=== PATIENT | male | born 1995 | race African-American/Black ===

== ENCOUNTER → 2017-02-17 21:11 | Emergency (ER) | payer OTHER ==
[~2017-02-17 21:11] MED LIST: Tetan/Diph/Pertus SYR(Tdap)* 0.5 ML SYR(BOOSTRIX) use SYR IM ONE
[2017-02-17 21:16] VITALS: BP 122/70
--- NOTE | 2017-02-17 21:49 | ED ---
Laceration/Wound HPI - HPI Summary HPI Summary: 21M presents with laceration to right elbow today. He states he was climbing a wall when he slipped and landed on his right elbow. He is right handed. He has pain with ROM of his elbow. He states he had his last tetanus probably when he was 14. He has full ROM of his elbow with pain. He has some pain radiating down to his pinky. He also has abrasions on his foot as he was bare foot. He denies any foreign body in wound. - History of Current Complaint Stated Complaint: FALL/ARM LAC,FOOT ABRASIONS Time Seen by Provider: 02/17/17 21:37 Pain Intensity: 9 - Allergy/Home Medications Allergies/Adverse Reactions: Allergies Allergy/AdvReac Type Severity Reaction Status Date / Time Ibuprofen Allergy Swelling Verified 02/17/17 21:17 PMH/Surg Hx/FS Hx/Imm Hx Endocrine/Hematology History: Denies: Hx Anticoagulant Therapy Respiratory History: Reports: Hx Asthma - as a child Infectious Disease History: No Infectious Disease History: Denies: Traveled Outside the [place] in Last 30 Days - Family History Known Family History: Positive: Diabetes - Social History Alcohol Use: None Substance Use Type: Reports: Marijuana Substance Use Comment - Amount & Last Used: A FEW TOKES EARLIER TODAY Smoking Status (MU): Current Some Day Smoker Review of Systems Negative: Fever Negative: Chest Pain Negative: Shortness Of Breath Positive: Myalgia - elbow pain Positive: Other - laceration right elbow All Other Systems Reviewed And Are Negative: Yes Physical Exam Triage Information Reviewed: Yes Vital Signs On Initial Exam: Initial Vitals Temp Pulse Resp BP Pulse Ox 99 F 85 18 122/70 99 02/17/17 21:14 02/17/17 21:14 02/17/17 21:14 02/17/17 21:14 02/17/17 21:14 Vital Signs Reviewed: Yes Appearance: Positive: Well-Appearing Skin: Positive: Warm, Dry, Other - 2cm by 1/2 cm laceration over right elbow, small abrasions near right elbow, abrasion to right foot Procedures - Laceration/Wound Repair 1 Location: Other - right elbow Description: Linear Anesthesia: Local, 1.0% Length, Depth and Shape: 2cm by 1/2 cm Betadine Prep?: Yes Irrigated w/ Saline (ccs): 150 Laceration/Wound Explored: clean Closure: Single Layer Suture Type: Prolene - 4-0 Number of Sutures: 2 - vertical mattress Diagnostics - Vital Signs Vital Signs Temp Pulse Resp BP Pulse Ox 02/17/17 21:16 99 F 88 18 122/70 98 02/17/17 21:14 99 F 85 18 122/70 99 - Laboratory Lab Statement: Any lab studies that have been ordered have been reviewed, and results considered in the medical decision making process. - Radiology elbow Xray Interpretation: No Acute Changes Radiology Interpretation Completed By: Radiologist Laceration Repair Course/Dx - Course Course Of Treatment: 21M presents with right elbow laceration after falling on some rocks. has full ROM of elbow. tetanus was 7 years ago. due to location and width of laceration placed 2 vertical mattress stitches, placed steri strips over abrasion due to location wanted to make sure didn't open up as are on elbow joint, xray elbow normal. left before tetanus given. patient understands and agrees with plan - Differential Dx Differental Diagnoses: Abrasion, Avulsion, Fracture, Laceration - Clinical Impression Provider Diagnoses: Elbow laceration Discharge - Discharge Plan Condition: Good Disposition: HOME Patient Education Materials: Care For Your Stitches (ED) Referrals: No Primary Care Phys,NOPCP [Primary Care Provider] - Additional Instructions: Keep wrapped in SAYDA for 5 days Take Tylenol or ibuprofen for pain Keep area clean and dry Return to ED or primary in 10-14 days to have sutures removed Return to ED if develop signs of infection such as fever, spreading redness, or pus.
--- NOTE | 2017-02-17 22:46 | RAD ---
Indication: Fall on elbow with elbow injury. 4 views of the elbow demonstrates no fracture. No joint effusion is noted. There is suggestion of soft tissue laceration. IMPRESSION: NO FRACTURE IS NOTED. SUBCUTANEOUS LACERATION.
== END | disposition home or self-care (01) ==
LOC: ED 21:11
DX: S51.011A Laceration without foreign body of right elbow, initial encounter (principal); W01.0XXA Fall on same level from slipping, tripping and stumbling without subsequent striking against object, initial encounter; Y93.9 Activity, unspecified; Y92.9 Unspecified place or not applicable; Y99.9 Unspecified external cause status; Z72.0 Tobacco use
CPT/HCPCS: 12001; 90471; 90715; 99281

== ENCOUNTER 2017-05-11 01:39 | Emergency (ER) | payer SELFPAY ==
[2017-05-11] MEDS ORDERED: NS 0.9% 1000 ML* 1,000 ML IV ONE (02:15)
[2017-05-11 02:33] LABS: Hematocrit 47 % (42-52); Hemoglobin 15.8 g/dl (14.0-18.0); Mean Corpuscular HGB Conc 34 g/dl (31-36); Mean Corpuscular Hemoglobin 32 pg (27-31); Mean Corpuscular Volume 96 fL (80-94); Mean Platelet Volume 8 um3 (7.4-10.4); Red Blood Count 4.89 10^6/ul (4.0-5.4); Red Cell Distribution Width 13 % (10.5-15); White Blood Count 7.9 10^3/ul (3.5-10.8)
[2017-05-11 02:38] LABS: Urine Bilirubin Negative (Negative); Urine Glucose Negative (Negative); Urine Nitrite Negative (Negative)
[2017-05-11 02:47] LABS: Albumin 4.2 g/dL (3.2-5.2); Calcium 9.4 mg/dL (8.6-10.3); EGFR African American 80.4 (>60); EGFR Non-African American 62.5 (>60); Globulin 2.8 g/dL (2-4); Potassium 3.7 mmol/L (3.5-5.0); Total Bilirubin 0.5 mg/dL (0.2-1.0)
[2017-05-11] MEDS ORDERED: Iohexol 300* (CONTRAST) 10 ML SDV IV ONE (02:57)
[2017-05-11] MEDS ORDERED: HYDROcodone/ACETAMIN 5-325 MG* 1 TAB PO ONE (03:49)
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
[2017-05-11 04:13] VITALS: BP 114/68
--- NOTE | 2017-05-11 07:54 | RAD ---
HISTORY: Pelvic pain, trauma COMPARISONS: None TECHNIQUE: Multiple contiguous axial CT scans were obtained of the chest, abdomen, and pelvis after the administration of intravenous contrast. Coronal and sagittal multiplanar reformations are submitted for review.. Oral contrast was not administered. Delayed images were obtained through the abdomen and pelvis. FINDINGS: CHEST NECK AND THYROID: The lower neck and thyroid are unremarkable. CHEST WALL: There is no lower cervical, axillary, or supraclavicular lymphadenopathy by size criteria. HEART AND PERICARDIUM: The heart is unremarkable. AORTA AND PULMONARY VASCULATURE: The aorta and pulmonary vasculature are normal. MEDIASTINUM: There is no mediastinal lymphadenopathy by size criteria. FLORENTIN: There is no hilar lymphadenopathy by size criteria. AIRWAY AND ESOPHAGUS: The airway is unremarkable, without endobronchial filling defect. The esophagus is grossly normal. LUNG PARENCHYMA: The lungs are clear. PLEURA: No pleural abnormalities are noted. BONES AND SOFT TISSUES: No bone or soft tissue abnormalities are noted. ABDOMEN/PELVIS: LIVER: The liver is normal in shape, size, contour, and attenuation. BILE DUCTS: There is no intrahepatic or extrahepatic biliary dilatation. GALLBLADDER: The gallbladder is not distended, but is grossly normal. PANCREAS: The pancreas is normal, without mass or ductal dilatation. SPLEEN: Normal in size and appearance. UPPER GI TRACT: Evaluation of the gastrointestinal tract is limited by incomplete gastric distention. The upper GI tract is unremarkable. SMALL BOWEL \T\ MESENTERY: The small bowel is normal in contour, course, and caliber. There is no obstruction or dilatation. COLON: The colon is normal in contour, course, caliber. There is no pericolonic inflammatory change. ADRENALS: Normal bilaterally. KIDNEYS: The kidneys are normal in shape, size, contour, and axis. There is no hydronephrosis or nephrolithiasis. BLADDER: The bladder is smooth in contour. PELVIC ORGANS: The prostate gland is normal. The seminal vesicles are symmetric. AORTA: The aorta is normal. IVC: Unremarkable LYMPH NODES: There is no lymphadenopathy by size criteria. ABDOMINAL WALL: There is no evidence for abdominal wall hernia. BONES: The bony skeleton is grossly unremarkable. OTHER: There is no free intraperitoneal fluid or free intraperitoneal gas. There is no active arterial extravasation. IMPRESSION: NO ACUTE CT PATHOLOGY OF THE CHEST, ABDOMEN, OR PELVIS
== END 2017-05-11 04:16 | disposition home or self-care (01) ==
LOC: ED 01:39
DX: S30.21XA Contusion of penis, initial encounter (principal); M25.551 Pain in right hip; V49.9XXA Car occupant (driver) (passenger) injured in unspecified traffic accident, initial encounter; Y93.9 Activity, unspecified; Y92.9 Unspecified place or not applicable
CPT/HCPCS: 36415; 71260; 74177; 80053; 81003; 83605; 85025; 99283; Q9967

== ENCOUNTER 2018-04-10 12:55 | Emergency (ER) | payer SELFPAY ==
--- NOTE | 2018-04-10 13:38 | RAD ---
INDICATION: Right middle finger injury. TECHNIQUE: 3 views of the right middle finger were obtained. FINDINGS: There is soft tissue swelling present. There is an oblique slightly comminuted fracture of the distal diaphysis and metaphysis of the third metacarpal. There is mild medial displacement of the distal fragment relative the proximal fragment of approximately 1 cortical diameter. IMPRESSION: SLIGHTLY DISPLACED FRACTURE OF THE THIRD METACARPAL.
[2018-04-10 14:40] VITALS: BP 129/58
--- NOTE | 2018-04-10 15:11 | ED ---
Upper Extremity Pain - HPI Summary HPI Summary: Pt. is a 22 y.o male who presents to the ER for a right hand injury that occurred today. Pt. states he was at work using a ambler bar to remove a rock when he felt a popping in his right 3rd finger and hand. Symptoms are mild in severity. Moving and touching hand makes symptoms worse. Rest makes symptoms better. - History of Current Complaint Chief Complaint: EDExtremityUpper Stated Complaint: RT FINGER INJURY Time Seen by Provider: 04/10/18 13:03 Hx Obtained From: Patient - Allergies/Home Medications Allergies/Adverse Reactions: Allergies Allergy/AdvReac Type Severity Reaction Status Date / Time ibuprofen Allergy Swelling Verified 04/10/18 12:59 Of Face,Lips,& Throat PMH/Surg Hx/FS Hx/Imm Hx Previously Healthy: Yes Endocrine/Hematology History: Denies: Hx Anticoagulant Therapy, Hx Diabetes Cardiovascular History: Denies: Hx Hypertension Respiratory History: Reports: Hx Asthma - as a child History: Denies: Hx Renal Disease Infectious Disease History: No Infectious Disease History: Denies: Traveled Outside the [place] in Last 30 Days - Family History Known Family History: Positive: Diabetes - Social History Occupation: Employed Full-time Lives: With Family Alcohol Use: None Substance Use Type: Reports: Marijuana Substance Use Comment - Amount & Last Used: A FEW TOKES EARLIER TODAY Smoking Status (MU): Current Some Day Smoker Review of Systems Positive: Other - Right hand injury Negative: Weakness, Paresthesia, Numbness All Other Systems Reviewed And Are Negative: Yes Physical Exam Triage Information Reviewed: Yes Vital Signs On Initial Exam: Initial Vitals Temp Pulse Resp BP Pulse Ox 98.3 F 64 17 134/55 99 04/10/18 12:56 04/10/18 12:56 04/10/18 12:56 04/10/18 12:56 04/10/18 12:56 Vital Signs Reviewed: Yes Appearance: Positive: Well-Appearing - Pt. sitting on bed in NAD. Skin: Positive: Warm, Dry Head/Face: Positive: Normal Head/Face Inspection Eyes: Positive: Normal Neck: Positive: Supple Musculoskeletal: Positive: Other - Mild edema and pain on palpation over the 3rd metatarsal and 3rd PIP joint. Difficulty flexing and extending digit secondary to pain. No breaks in the skin. Neurological: Positive: Normal, CN Intact II-III Psychiatric: Positive: Affect/Mood Appropriate Procedures - Splinting Right Upper Extremity Hand-Made Type: orthoglass Splint: volar Pre-Proc Neuro Vasc Exam: normal Post-Proc Neuro Vasc Exam: normal Diagnostics - Vital Signs Vital Signs Temp Pulse Resp BP Pulse Ox 04/10/18 14:39 98.4 F 63 18 129/58 99 04/10/18 12:56 98.3 F 64 17 134/55 99 - Laboratory Lab Statement: Any lab studies that have been ordered have been reviewed, and results considered in the medical decision making process. Course/Dx - Course Course Of Treatment: Pt. presenting to the ER for a right hand injury. Xray shows a slightly displaced fracture of the 3rd metacarpal, reading per radiology. Hand was splinted. Pt. to call orthopedics tomorrow morning for an apt. To ice and elevate. A few days of lortab rx for pain. DIABETES PHYSICIAN reviewed and no reg flags noted. Pt. understands and agrees with plan. - Diagnoses Differential Diagnosis/HQI/PQRI: Positive: Contusion, Fracture (Closed), Hematoma, Strain, Sprain Provider Diagnoses: Fracture, metacarpal shaft Discharge - Sign-Out/Discharge Documenting (check all that apply): Discharge/Admit/Transfer - Discharge Plan Condition: Good Disposition: HOME Prescriptions: Hydrocodone/Acetaminophen [Hydrocodone-Acetamin 5-325 mg] 1 each PO Q6H #12 tablet MDD 4tablets Patient Education Materials: Hand Fracture (ED) Referrals: Syd Martínez MD [Medical Doctor] - No Primary Care Phys,NOPCP [Primary Care Provider] - Additional Instructions: Call Dr. Martínez's office tomorrow morning to schedule an appointment Keep splint in place Ice and elevate Pain medication as directed - Billing Disposition and Condition Condition: GOOD Disposition: Home
== END 2018-04-10 14:39 | disposition home or self-care (01) ==
LOC: ED 12:55
DX: S62.322A Displaced fracture of shaft of third metacarpal bone, right hand, initial encounter for closed fracture (principal); X58.XXXA Exposure to other specified factors, initial encounter; Y92.9 Unspecified place or not applicable; F17.200 Nicotine dependence, unspecified, uncomplicated; Z88.6 Allergy status to analgesic agent
CPT/HCPCS: 73140; 99282

== ENCOUNTER 2018-05-19 15:50 | Emergency (ER) | payer SELFPAY ==
[2018-05-19 16:06] VITALS: BP 113/66
--- NOTE | 2018-05-19 16:21 | UC ---
[facility] Dental HPI - HPI Summary HPI Summary: right upper dental pain worsening over the past week--has not made a dental appointment - History of Current Complaint Chief Complaint: UCDentalProblem Stated Complaint: DENTAL COMPLAINT Time Seen by Provider: 05/19/18 16:15 Hx Obtained From: Patient Onset/Duration: Gradual Onset, Lasting Weeks - 1, Still Present Pain Intensity: 5 Pain Scale Used: 0-10 Numeric Aggravating Factor(s): Chewing Alleviating Factor(s): Nothing Related History: Previous Dental Care on Same Tooth - Allergies/Home Medications Allergies/Adverse Reactions: Allergies Allergy/AdvReac Type Severity Reaction Status Date / Time ibuprofen Allergy Swelling Verified 05/19/18 16:06 Of Face,Lips,& Throat PMH/Surg Hx/FS Hx/Imm Hx Previously Healthy: Yes Other History Of: Negative For: Anticoagulant Therapy - Surgical History Surgical History: None - Family History Known Family History: Positive: Diabetes - Social History Occupation: Unemployed Lives: With Family Alcohol Use: None Substance Use Type: Marijuana Substance Use Comment - Amount & Last Used: A FEW TOKES EARLIER TODAY Smoking Status (MU): Light Every Day Tobacco Smoker Review of Systems Constitutional: Negative Skin: Negative Eyes: Negative ENT: Dental Pain Respiratory: Negative Cardiovascular: Negative Gastrointestinal: Negative Genitourinary: Negative Motor: Negative Neurovascular: Negative Musculoskeletal: Negative Neurological: Negative Psychological: Negative Is Patient Immunocompromised?: No All Other Systems Reviewed And Are Negative: Yes Physical Exam Triage Information Reviewed: Yes Appearance: Well-Appearing, No Pain Distress, Well-Nourished Vital Signs: Initial Vital Signs Temp 98.4 F 05/19/18 16:01 Pulse 63 05/19/18 16:01 Resp 16 05/19/18 16:01 BP 113/66 05/19/18 16:01 Pulse Ox 100 05/19/18 16:01 Vital Signs Reviewed: Yes Eye Exam: Normal Eyes: Positive: Conjunctiva Clear ENT Exam: Normal ENT: Positive: Normal ENT inspection, Hearing grossly normal. Negative: Trismus , Muffled voice, Hoarse voice Dental Exam: Other Dental: Positive: Percussion Tenderness @ - #3 Neck exam: Normal Neck: Positive: Supple Respiratory Exam: Normal Respiratory: Positive: Chest non-tender, No respiratory distress, No accessory muscle use Cardiovascular Exam: Normal Cardiovascular: Positive: RRR, Pulses Normal, Brisk Capillary Refill Musculoskeletal Exam: Normal Neurological Exam: Normal Psychological Exam: Normal Skin Exam: Normal Dental Complaint Course/Dx - Course Course Of Treatment: amoxicillin, hydrocodone, follow with dentist in the next 7 days - Differential Dx/Diagnosis Provider Diagnoses: dental pain tooth #3 Discharge - Sign-Out/Discharge Documenting (check all that apply): Patient Departure - Discharge Plan Condition: Stable Disposition: HOME Prescriptions: Amoxicillin PO (*) [Amoxicillin 500 MG CAP*] 500 mg PO TID #30 cap Hydrocodone/Acetaminophen [Hydrocodone-Acetamin 5-325 mg] 1 each PO Q6HR PRN # 10 tablet MDD 4 PRN Reason: Pain (Dental) Patient Education Materials: Dental Abscess (ED), Toothache (ED) Referrals: [facility] [Outside] - If Needed [facility] [place] [facility] [Outside] - If Needed Additional Instructions: Follow with dentist this week - Billing Disposition and Condition Condition: STABLE Disposition: Home
== END 2018-05-19 16:39 | disposition home or self-care (01) ==
LOC: UCEAST 15:50
DX: K08.89 Other specified disorders of teeth and supporting structures (principal); Z88.6 Allergy status to analgesic agent; F17.210 Nicotine dependence, cigarettes, uncomplicated
CPT/HCPCS: 99212; G0463

== ENCOUNTER 2019-07-26 23:52 | Emergency (ER) | payer OTHER ==
[2019-07-27] VITALS: BP 151/68
[2019-07-27] MEDS ORDERED: Amoxicillin/Clavulanate TAB* 500 MG PO ONE (00:44)
[2019-07-27] MEDS ORDERED: diPHENhydraMINE PO* 25 MG PO ONE (00:44)
--- NOTE | 2019-07-27 00:47 | ED ---
Upper Extremity Pain - HPI Summary HPI Summary: 23-year-old male presents with swelling to left middle finger since yesterday. States he got bit by a spider when he is moving wood. This area started to swell. He states it is very itchy. He is on the rash and feels warm. Has a history of MRSA. Has no medical conditions. Never had this reaction before. No chest pain or shortness breath. No fevers or chills. No sore throat. - History of Current Complaint Chief Complaint: EDGeneral Stated Complaint: SPIDER BITE L HAND SWOLLEN PER PT Time Seen by Provider: 07/27/19 00:36 - Allergies/Home Medications Allergies/Adverse Reactions: Allergies Allergy/AdvReac Type Severity Reaction Status Date / Time ibuprofen Allergy Swelling Verified 07/27/19 00:00 Of Face,Lips,& Throat PMH/Surg Hx/FS Hx/Imm Hx Endocrine/Hematology History: Denies: Hx Anticoagulant Therapy, Hx Diabetes Cardiovascular History: Denies: Hx Hypertension Respiratory History: Reports: Hx Asthma History: Denies: Hx Renal Disease Infectious Disease History: No Infectious Disease History: Denies: Traveled Outside the [place] in Last 30 Days - Family History Known Family History: Positive: Diabetes - Social History Alcohol Use: None Substance Use Type: Reports: Marijuana Substance Use Comment - Amount & Last Used: A FEW TOKES EARLIER TODAY Smoking Status (MU): Light Every Day Tobacco Smoker Review of Systems Negative: Fever Negative: Chest Pain Negative: Shortness Of Breath Positive: Rash, Other - swelling left finger middle All Other Systems Reviewed And Are Negative: Yes Physical Exam Triage Information Reviewed: Yes Vital Signs On Initial Exam: Initial Vitals Temp Pulse Resp BP Pulse Ox 98.3 F 83 20 151/68 99 07/26/19 23:54 07/26/19 23:54 07/26/19 23:54 07/26/19 23:54 07/26/19 23:54 Vital Signs Reviewed: Yes Appearance: Positive: Well-Appearing Skin: Positive: Warm, Dry Head/Face: Positive: Normal Head/Face Inspection Eyes: Positive: Normal, Conjunctiva Clear ENT: Positive: Pharynx normal Respiratory/Lung Sounds: Positive: Clear to Auscultation, Breath Sounds Present Cardiovascular: Positive: Normal, RRR Musculoskeletal: Positive: Strength/ROM Intact - left hand, Edema Left - middle finger, Other - good pulses, nontender, warmth to area with mild erythema Neurological: Positive: Normal Psychiatric: Positive: Normal Procedures - Sedation Patient Received Moderate/Deep Sedation with Procedure: No Diagnostics - Vital Signs Vital Signs Temp Pulse Resp BP Pulse Ox 07/26/19 23:54 98.3 F 83 20 151/68 99 - Laboratory Lab Statement: Any lab studies that have been ordered have been reviewed, and results considered in the medical decision making process. Course/Dx - Course Course Of Treatment: 23-year-old male presents with swelling to left middle finger since yesterday. States he got bit by a spider when he is moving wood. This area started to swell. He states it is very itchy. He is on the rash and feels warm. Has a history of MRSA. Has no medical conditions. Never had this reaction before. No chest pain or shortness breath. No fevers or chills. No sore throat. On exam has edema noted to left middle finger. Has full range of motion without pain. Has some mild erythema with some warmth to the area. We' ll treat as potentially early cellulitis with augmentin. no sign of flexor tenosynvoitis. Gave Benadryl for itching. Told to est care with primary. Patient understands and agrees with plan. - Diagnoses Differential Diagnosis/HQI/PQRI: Positive: Other - allergic reaction, flexor tenosynoviits, contact dermatitis, cellulitis Provider Diagnoses: Swelling of left middle finger Discharge ED - Sign-Out/Discharge Documenting (check all that apply): Patient Departure - Discharge Plan Condition: Good Disposition: HOME Prescriptions: Amoxicillin/Clavulanate TAB* [Augmentin TAB 500 mg*] 500 mg PO BID #14 tab Referrals: [facility] [place] [facility] [Outside] Additional Instructions: take benadryl every 6 hours as needed for itching Take augmentin twice a day for 7 days take tyenlol every 6 hours for pain apply ice to the area, elevate Establish care with primary Return to ED if develop fever, inability to extend finger or any new or worsening symptoms - Billing Disposition and Condition Condition: GOOD Disposition: Home
== END 2019-07-27 01:00 | disposition home or self-care (01) ==
LOC: ED 23:52
DX: M79.89 Other specified soft tissue disorders (principal); J45.909 Unspecified asthma, uncomplicated; F17.200 Nicotine dependence, unspecified, uncomplicated; Z88.6 Allergy status to analgesic agent
CPT/HCPCS: 99282; A9270-GY

== ENCOUNTER 2019-11-11 12:53 | Emergency (ER) | payer OTHER ==
[2019-11-11] MEDS ORDERED: cefTRIAXone VIAL(*) 250 MG VIAL IM ONE (14:46)
[2019-11-11] MEDS ORDERED: Lidocaine 1% MPF ** 5 ML VIAL IM ONE (14:46)
[2019-11-11] MEDS ORDERED: Azithromycin TAB* 250 MG PO ONE (14:50)
--- NOTE | 2019-11-11 15:02 | ED ---
GI/ HPI - HPI Summary HPI Summary: This patient is a 24-year-old male presenting to the ED with a request for STD testing. Patient states he was treated approximately 8 days ago after sexual intercourse with a partner who had confirmed gonorrhea. He states one day after he was treated he again had sexual intercourse with his partner prior to her being treated. He states he has been urinating more than normal. Denies any burning sensation. Denies any fevers, sweats, chills or penile discharge. Denies any fevers, sweats, chills, penile discharge, vesicles or other lesions. - History of Current Complaint Chief Complaint: EDGeneral Time Seen by Provider: 11/11/19 13:04 Stated Complaint: GENERAL ILLNESS Hx Obtained From: Patient Onset/Duration: Started Hours Ago Timing: Constant Severity: Mild Current Severity: None Pain Intensity: 0 Associated Signs and Symptoms: Positive: Negative Aggravating Factor(s): Nothing Alleviating Factor(s): Nothing - Allergy/Home Medications Allergies/Adverse Reactions: Allergies Allergy/AdvReac Type Severity Reaction Status Date / Time ibuprofen Allergy Swelling Verified 11/11/19 12:58 Of Face,Lips,& Throat PMH/Surg Hx/FS Hx/Imm Hx Previously Healthy: Yes Endocrine/Hematology History: Denies: Hx Anticoagulant Therapy, Hx Diabetes Cardiovascular History: Denies: Hx Hypertension Respiratory History: Reports: Hx Asthma History: Denies: Hx Renal Disease - Immunization History Date of Tetanus Vaccine: within 5 years Date of Influenza Vaccine: 2018 Hx Pertussis Vaccination: No Immunizations Up to Date: Yes Infectious Disease History: No Infectious Disease History: Denies: Traveled Outside the [place] in Last 30 Days - Family History Known Family History: Positive: Diabetes - Social History Occupation: Employed Full-time Alcohol Use: None Hx Substance Use: Yes Substance Use Type: Reports: Marijuana Substance Use Comment - Amount & Last Used: Denies Smoking Status (MU): Light Every Day Tobacco Smoker Review of Systems Negative: Fever, Chills, Fatigue, Skin Diaphoresis Negative: Palpitations, Chest Pain Positive: see HPI, frequency Negative: Arthralgia, Myalgia Skin: Negative Neurological: Negative All Other Systems Reviewed And Are Negative: Yes Physical Exam Triage Information Reviewed: Yes Vital Signs On Initial Exam: Initial Vitals Temp Pulse Resp BP Pulse Ox 99.3 F 84 19 117/89 96 11/11/19 12:56 11/11/19 12:56 11/11/19 12:56 11/11/19 12:56 11/11/19 12:56 Vital Signs Reviewed: Yes Appearance: Positive: Well-Appearing, Well-Nourished Skin: Positive: Warm, Skin Color Reflects Adequate Perfusion Head/Face: Positive: Normal Head/Face Inspection Eyes: Positive: EOMI, MELLO, Conjunctiva Clear Neck: Positive: Supple, No Lymphadenopathy Respiratory/Lung Sounds: Positive: Clear to Auscultation, Breath Sounds Present Cardiovascular: Positive: RRR, Pulses are Symmetrical in both Upper and Lower Extremities Musculoskeletal: Positive: Normal, Strength/ROM Intact Neurological: Positive: Speech Normal Psychiatric: Positive: Normal, Affect/Mood Appropriate AVPU Assessment: Alert Procedures - Sedation Patient Received Moderate/Deep Sedation with Procedure: No Diagnostics - Vital Signs Vital Signs Temp Pulse Resp BP Pulse Ox 11/11/19 12:56 99.3 F 84 19 117/89 96 - Laboratory Lab Results: Lab Results 11/11/19 Range/Units 14:25 C.trachomatis (Amp Det) Pending N.gonorrhoeae (Amp Det) Pending Lab Statement: Any lab studies that have been ordered have been reviewed, and results considered in the medical decision making process. GIGU Course/Dx - Course Course Of Treatment: This patient was given 1 g of Zithromax and 250 mg IM Rocephin for treatment of GC/chlamydia. Patient admitted to having unprotected intercourse with a person who had a recent confirmed GC/Chlamydia test. GC/ Chlamydia test today is pending, however will treat for contact with positive partner. Will call with any positive results. - Diagnoses Differential Diagnoses - Male: Urinary Tract Infection Provider Diagnoses: Sexually transmitted disease exposure Discharge ED - Sign-Out/Discharge Documenting (check all that apply): Patient Departure - Discharge Plan Condition: Stable Disposition: HOME Patient Education Materials: Sexually Transmitted Diseases (ED) Referrals: Syd Goldstein MD [Primary Care Provider] - Additional Instructions: Will call in 2-3 days with any positive results only - Billing Disposition and Condition Condition: STABLE Disposition: Home
[2019-11-11 15:42] VITALS: BP 128/89
[2019-11-13 15:14] LABS: Chlamydia trachomatis NAA Negative (Negative); Neisseria gonorrhoeae (GC) NAA Negative (Negative)
== END 2019-11-11 15:39 | disposition home or self-care (01) ==
LOC: ED 12:53
DX: Z20.2 Contact with and (suspected) exposure to infections with a predominantly sexual mode of transmission (principal); F17.200 Nicotine dependence, unspecified, uncomplicated; Z88.8 Allergy status to other drugs, medicaments and biological substances
CPT/HCPCS: 87491; 87591; 96372; 99282; A9270-GY; J0696